=== PATIENT | female | born 1940 | race Two or more races ===

== ENCOUNTER 2016-10-31 09:16 | Inpatient (IN) | payer MEDICARE, MEDICAID ==
[~2016-10-31] VITALS: Ht 154.9 cm; Wt 65.0 kg
[~2016-10-31 09:16] MED LIST: BENICAR; METF-370; PRILOSEC; ZOCOR
[2016-10-31 09:52] LABS: Basophils # (auto) 0 uL; Eosinophils # (auto) 0 uL; Eosinophils % (auto) 0.3 % (0.0-7.0); Hematocrit 38.1 % (36.0-46.0); Hemoglobin 12.6 g/dL (12.2-16.2); Lymphocytes # (auto) 1.1 uL; Lymphocytes % (auto) 14.8 % (10.0-50.0); Mean Corpuscular Hemoglobin 27.9 pg (28.0-32.0); Mean Corpuscular Hgb Conc. 33.1 g/dL (32.0-36.0); Mean Corpuscular Volume 84.2 fL (80.0-100.0); Mean Platelet Volume 7.9 fL (7.4-10.4); Monocytes # (auto) 0.2 uL; Monocytes % (auto) 2.3 % (0.0-12.0); Neutrophils % (auto) 82.6 % (37.0-80.0); Platelet Count (auto) 327 10^3/uL (140-450); Red Cell Distribution Width 14.7 % (11.6-16.0); White Blood Cell 7.2 10^3/uL (4.4-10.8)
[2016-10-31 10:11] LABS: Albumin 3.6 g/dL (3.4-5.0); Anion Gap 9 (5-15); BUN/Creatinine Ratio 15.1; Blood Urea Nitrogen 11 mg/dL (7-18); Calcium 8.9 mg/dL (8.5-10.1); Carbon Dioxide 26 mmol/L (21-32); Chloride 105 mmol/L (98-107); GFR African American 99 mL/min; GFR Non-African American 82 mL/min; Glucose 173 mg/dL (74-106); Potassium 3.9 mmol/L (3.5-5.1); Sodium 140 mmol/L (136-145)
[2016-10-31 10:22] LABS: Alkaline Phosphatase 61 U/L (45-117); Aspartate Aminotransferase 12 U/L (15-37); Bilirubin, Total 0.2 mg/dL (0.2-1.0)
[2016-10-31] MEDS ORDERED: SODIUM CHLORIDE 0.9% 1,000 ML IVB ONE (11:27)
[2016-10-31 11:55] LABS: INR 0.96 (0.9-1.15); Partial Thromboplastin Time 24.6 sec (22.64-33.71); Prothrombin Time 10.5 sec (9.37-12.3)
[2016-10-31] MEDS ORDERED: ONDANSETRON HCL 4 MG/2 ML VIAL IV ONE (12:30)
[2016-10-31] MEDS ORDERED: ASPirin 81 mg TAB ONE (12:54)
[2016-10-31] MEDS ORDERED: ACETAMINOPHEN 325 MG TAB PO ONE (12:56)
[2016-10-31] MEDS: ASPirin 81 mg TAB PO SCH (13:00)
[2016-10-31 13:29] LABS: Urine Bilirubin Negative (Negative); Urine Blood Negative /uL (Negative); Urine Color Yellow (Yellow); Urine Glucose Normal (Normal); Urine Ketone Negative (Negative); Urine Mucus FEW (None Seen); Urine Nitrite Negative (Negative); Urine RBC 1 /hpf (0 - 4); Urine Squamous Epithelial Cell FEW /hpf (<5); Urine Urobilinogen Normal (Negative); Urine pH 6.5 (5.0-8.0)
[2016-10-31] MEDS ORDERED: LACTULOSE 20Gm/30ML SOLN PO PRN ×2 (13:30)
[2016-10-31] MEDS ORDERED: MORPHINE SULF INJ 2 MG/ML SYRINGE 1ML IV PRN ×2 (13:30)
[2016-10-31] MEDS ORDERED: LORazepam 0.5 MG TAB PO PRN (13:30)
[2016-10-31] MEDS ORDERED: HYDROcodone-ACET 5/325MG TAB PO PRN (13:30)
[2016-10-31] MEDS ORDERED: TEMAZEPAM 15 MG CAP PO PRN (13:30)
[2016-10-31] MEDS ORDERED: ACETAMINOPHEN 500 MG TAB PO PRN (13:30)
[2016-10-31] MEDS ORDERED: DEXTROSE (50%) 50ML SYRG IV PRN (13:30)
[2016-10-31] MEDS ORDERED: NITROGLYCERIN 0.4 MG SL TAB SL PRN (13:30)
[2016-10-31] MEDS ORDERED: POTASSIUM CHL 20 Meq TABLET PO SCH (14:00)
[2016-10-31] MEDS: FUROSEMIDE 40 MG/4 ML VIAL IV SCH (14:42)
[2016-10-31] MEDS: CARVEDILOL 3.125 MG TAB PO SCH ×2 (14:43→22:46)
[2016-10-31] MEDS: ENALAPRIL MALEATE 10 MG TAB PO SCH (14:43)
[2016-10-31] MEDS: ENOXAPARIN SOD 40 MG/0.4 ML SYRINGE SC SCH (14:44)
[2016-10-31 14:45] VITALS: BP 121/60
[2016-10-31] MEDS: POTASSIUM CHL 10% (20 MEQ/15ML) ORAL SOLN PO SCH (14:45)
[2016-10-31 15:15] VITALS: BP 138/84
[2016-10-31] MEDS ORDERED: METF-370 PO (15:23)
[2016-10-31] MEDS ORDERED: OMEP20CA74 PO (15:23)
[2016-10-31] MEDS ORDERED: OLME20TA19 PO (15:23)
[2016-10-31] MEDS ORDERED: SIMV-8 PO (15:23)
[2016-10-31] MEDS: PROMETHAZINE HCL 25 MG/ML 1ML IV PRN ×2 (15:46→20:43)
[2016-10-31] MEDS: ACCU-CHEK COMFORT CURVE STRIP VI SCH ×2 (17:00→22:00)
[2016-10-31] MEDS: InsuLIN REG 1unit/0.01ml Soln (100units/ml) SC SCH ×2 (17:00→22:00)
[2016-10-31] MEDS ORDERED: cefTRIAXone 1GM/50ML D5W 50 ML IV ONE (17:00)
[2016-10-31 17:01] VITALS: BP 123/76
[2016-10-31 20:00] VITALS: BP 111/73
[2016-10-31 21:41] VITALS: BP 111/73
[2016-10-31] MEDS ORDERED: ATORVASTATIN 20 MG TAB PO SCH (22:00)
[2016-11-01 05:01] VITALS: BP 98/64
[2016-11-01 06:25] LABS: B-Type Natriuretic Peptide 26.82 pg/mL (0-100)
[2016-11-01 06:26] LABS: Cholesterol 188 mg/dL (< 200); HDL Cholesterol 36 mg/dL (40-59); LDL Cholesterol 112 mg/dL (< 100); Triglycerides 258 mg/dL (< 150)
[2016-11-01 06:45] LABS: Temperature: 23.3 C (20.0-25.0)
[2016-11-01] MEDS: InsuLIN REG 1unit/0.01ml Soln (100units/ml) SC SCH ×4 (07:00→21:52)
[2016-11-01] MEDS: ACCU-CHEK COMFORT CURVE STRIP VI SCH ×4 (07:01→21:52)
[2016-11-01 09:00] VITALS: BP 114/65
[2016-11-01] MEDS ORDERED: ASPirin 81 mg TAB PO SCH (10:00)
[2016-11-01] MEDS: cefTRIAXone 1GM/50ML D5W 50 ML IV SCH (10:00)
[2016-11-01] MEDS: ENOXAPARIN SOD 40 MG/0.4 ML SYRINGE SC SCH (10:01)
[2016-11-01] MEDS: FUROSEMIDE 40 MG/4 ML VIAL IV SCH (10:01)
[2016-11-01] MEDS: ENALAPRIL MALEATE 10 MG TAB PO SCH (10:02)
[2016-11-01] MEDS: POTASSIUM CHL 10% (20 MEQ/15ML) ORAL SOLN PO SCH (10:02)
[2016-11-01] MEDS: CARVEDILOL 3.125 MG TAB PO SCH ×2 (10:03→21:53)
[2016-11-01] MEDS: ASPirin 81 mg TAB PO SCH (10:05)
[2016-11-01 13:23] VITALS: BP 100/67
[2016-11-01 17:31] VITALS: BP 102/68
[2016-11-01] MEDS ORDERED: LORazepam 2MG/ML-1ML VIAL IV PRN (18:45)
[2016-11-01 20:00] VITALS: BP 96/62
[2016-11-01 22:19] VITALS: BP 96/62
[2016-11-02 05:07] VITALS: BP 108/74
[2016-11-02] MEDS: ACCU-CHEK COMFORT CURVE STRIP VI SCH ×3 (06:35→17:00)
[2016-11-02] MEDS: InsuLIN REG 1unit/0.01ml Soln (100units/ml) SC SCH ×3 (06:36→17:00)
[2016-11-02] MEDS: FUROSEMIDE 40 MG/4 ML VIAL IV SCH (09:29)
[2016-11-02] MEDS: cefTRIAXone 1GM/50ML D5W 50 ML IV SCH (09:29)
[2016-11-02] MEDS: POTASSIUM CHL 10% (20 MEQ/15ML) ORAL SOLN PO SCH (09:30)
[2016-11-02] MEDS: CARVEDILOL 3.125 MG TAB PO SCH (09:30)
[2016-11-02] MEDS: ENOXAPARIN SOD 40 MG/0.4 ML SYRINGE SC SCH (09:31)
[2016-11-02] MEDS: ENALAPRIL MALEATE 10 MG TAB PO SCH (09:31)
[2016-11-02 10:03] VITALS: BP 113/75
[2016-11-02 14:15] VITALS: BP 110/73
[2016-11-02 16:28] VITALS: BP 113/75
[2016-11-02 17:23] VITALS: BP 106/73
== END 2016-11-02 19:47 | disposition home or self-care (01) | DRG 690 ==
LOC: ER 09:16 → EDBD 09:16 → TELE 09:17 → TELE-WESTW 15:12
PROVIDERS: ADMIT Internal Medicine; ATTEND Internal Medicine
DX: N39.0 Urinary tract infection, site not specified (principal); E11.9 Type 2 diabetes mellitus without complications; I10 Essential (primary) hypertension; E78.5 Hyperlipidemia, unspecified; R42 Dizziness and giddiness; H55.00 Unspecified nystagmus; Z90.710 Acquired absence of both cervix and uterus; Z79.82 Long term (current) use of aspirin; Z79.899 Other long term (current) drug therapy; Z88.6 Allergy status to analgesic agent; Z88.8 Allergy status to other drugs, medicaments and biological substances; Z82.49 Family history of ischemic heart disease and other diseases of the circulatory system
CPT/HCPCS: 36415; 70450; 70551; 71010; 80053; 80061; 81001; 82550; 82607; 82746; 82962; 83036; 83735; 83880; 84443; 84484; 85025; 85610; 85652; 85730; 87086; 93005; 93306; 93886; 94761; 96361; 96374; J0696; J1815; J2405